=== PATIENT | female | born 1970 | race African-American/Black ===

== ENCOUNTER 2018-12-30 10:44 | Emergency (ER) | payer MEDICAID, OTHER ==
[~2018-12-30] VITALS: Ht 177.8 cm; Wt 73.5 kg
[2018-12-30 10:49] VITALS: BP_SYST 138
[2018-12-30 11:18] VITALS: BP_SYST 138
== END 2018-12-30 11:18 | disposition home or self-care (01) ==
LOC: SED 10:44
DX: R21 Rash and other nonspecific skin eruption (principal); R03.0 Elevated blood-pressure reading, without diagnosis of hypertension
CPT/HCPCS: 99281